=== PATIENT | female | born 1995 | race Caucasian/White ===

== ENCOUNTER → 2019-01-14 01:10 | Observation (INO) ==
[2019-01-14 00:36] LABS: Bilirubin,Urine Negative (Negative); Blood,Urine Negative (Negative); Clarity,Urine Cloudy (Clear); Color,Urine Yellow (Yellow); Glucose,Urine (UA) Normal (Normal); Ketones,Urine Negative (Negative); Leukocyte Esterase,Urine Large (Negative); Nitrite,Urine Negative (Negative); Protein,Urine Negative (Neg-Trace); Specific Gravity,Urine 1.017 (1.010-1.025); Urobilinogen,Urine Normal (Normal)
[2019-01-14 00:38] LABS: Bacteria,Urine Few per hpf (None-Few); Hyaline Casts,Urine None Seen per lpf (None-Few); RBC,Urine 0-3 per hpf (0-3); Squamous Epithelial Cell,Urine Many per lpf (None-Few); WBC,Urine 30-50 per hpf (0-3)
[2019-01-14 00:42] LABS: Amphetamine Screen,Urine Negative ng/mL (Cutoff=1000); Barbiturate Screen,Urine Negative ng/mL (Cutoff=200); Benzodiazepines Screen,Urine Negative ng/mL (Cutoff=200); Cannabinoid Screen,Urine Negative ng/mL (Cutoff = 50); Cocaine Screen,Urine Negative ng/mL (Cutoff= 300); Opiate Screen,Urine Negative ng/mL (Cutoff=300); Phencyclidine Screen,Urine Negative ng/mL (Cutoff=25)
--- NOTE | 2019-01-14 01:26 | OB/GYN Progress Note ---
Date of Encounter: 01/14/19 Time of Encounter: 01:17 - Assessment and Plan (1) 36 weeks gestation of Current Visit: Yes Status: Acute (2) Encounter for suspected PROM, with rupture of membranes not found Current Visit: Yes Status: Acute Speculum exam shows mucous plug and slight bloody discharge. Fern negative, discharged home with labor and when to return to triage precautions. Patient verbalizes understanding Subjective - Subjective Interval history: presents to triage with complaints of leaking of fluid. Patient states she felt a gush earlier this evening, has felt occasional contractions, denies vaginal bleeding. reports good movement Antepartum ROS: loss of fluid, movement normal, contractions, no vaginal bleeding Objective - Vital Signs Vital Signs: Intake and Output 01/13/19 01/13/19 01/14/19 15:59 23:59 07:59 Other: Weight 94.393 kg Patient Weight 01/14/19 23:59 Weight 94.393 kg - Exam FHR: auscultation normal FHR comments: Baseline 135 Abdomen: Present: soft, gravid Cervical dilation: 1/thick/ballotable - Labs Labs: Abnormal lab results Urine Clarity Cloudy (Clear) A 01/14/19 00:20 Ur Leukocyte Esterase Large (Negative) H 01/14/19 00:20 Urine Microscopic WBC 30-50 per hpf (0-3) H 01/14/19 00:20 Ur Squamous Epith Cells Many per lpf (None-Few) H 01/14/19 00:20 Ur Culture Indicated? YES (NO) A 01/14/19 00:20
== END | disposition home or self-care (01) ==
LOC: 1NENULAB
PROVIDERS: ADMIT Advanced Practice Midwife; ATTEND Advanced Practice Midwife

== ENCOUNTER 2019-01-19 14:25 | Observation (INO) | END 2019-01-19 16:11 | disposition home or self-care (01) | LOC: 1NENULAB | PROVIDERS: ADMIT Advanced Practice Midwife; ATTEND Advanced Practice Midwife ==

== ENCOUNTER 2019-01-29 18:32 | Observation (INO) ==
[2019-01-29 19:32] LABS: Amphetamine Screen,Urine Negative ng/mL (Cutoff=1000); Barbiturate Screen,Urine Negative ng/mL (Cutoff=200); Benzodiazepines Screen,Urine Negative ng/mL (Cutoff=200); Cannabinoid Screen,Urine Negative ng/mL (Cutoff = 50); Cocaine Screen,Urine Negative ng/mL (Cutoff= 300); Opiate Screen,Urine Negative ng/mL (Cutoff=300); Phencyclidine Screen,Urine Negative ng/mL (Cutoff=25)
== END 2019-01-29 19:20 | disposition home or self-care (01) ==
LOC: 1NENULAB
PROVIDERS: ADMIT Advanced Practice Midwife; ATTEND Advanced Practice Midwife

== ENCOUNTER 2019-01-31 02:45 | Observation (INO) ==
[2019-01-31 03:15] LABS: Amphetamine Screen,Urine Negative ng/mL (Cutoff=1000); Barbiturate Screen,Urine Negative ng/mL (Cutoff=200); Benzodiazepines Screen,Urine Negative ng/mL (Cutoff=200); Cannabinoid Screen,Urine Negative ng/mL (Cutoff = 50); Cocaine Screen,Urine Negative ng/mL (Cutoff= 300); Opiate Screen,Urine Negative ng/mL (Cutoff=300); Phencyclidine Screen,Urine Negative ng/mL (Cutoff=25)
[2019-01-31 03:25] LABS: Bilirubin,Urine Negative (Negative); Blood,Urine Negative (Negative); Clarity,Urine Cloudy (Clear); Color,Urine Yellow (Yellow); Glucose,Urine (UA) Normal (Normal); Ketones,Urine Negative (Negative); Leukocyte Esterase,Urine Large (Negative); Nitrite,Urine Negative (Negative); PH,Urine 6.5 pH Units (5.0-8.0); Protein,Urine Negative (Neg-Trace); Specific Gravity,Urine 1.014 (1.010-1.025); Urobilinogen,Urine Normal (Normal)
[2019-01-31 03:27] LABS: Bacteria,Urine Few per hpf (None-Few); Hyaline Casts,Urine None Seen per lpf (None-Few); RBC,Urine 0-3 per hpf (0-3); Squamous Epithelial Cell,Urine Many per lpf (None-Few); WBC,Urine 50-100 per hpf (0-3)
[2019-01-31 04:00] LABS: Basophils % 0.3 %; Eosinophils # 0.2 K/mcL (0.0-0.6); Eosinophils % 1.3 %; Immature Granulocytes % 0.8 % (0-4); Lymphocytes % 16.5 %; Mean Corpuscular HGB Conc 33.3 g/dL (31.6-35.5); Mean Corpuscular Hemoglobin 28.8 pg (28.0-33.3); Mean Corpuscular Volume 86.5 fL (83.0-100.0); Monocytes # 0.8 K/mcL (0.0-1.3); Monocytes % 6.5 %; Neutrophils # 8.8 K/mcL (1.6-8.9); Platelet Count 213 K/mcL (140-400); Red Blood Count 4.16 M/mcL (3.82-4.97); Red Cell Distribution Width 14.5 % (11.5-14.5); Segmented Neutrophils % 74.6 %; White Blood Count 11.8 K/mcL (4.3-11.1)
[2019-01-31 04:18] LABS: Alanine Aminotransferase 11 Units/L (7-52); Aspartate Amino Transferase 11 Units/L (13-39); BUN/Creatinine Ratio 16 (6-26); Blood Urea Nitrogen 7 mg/dL (6-20); Lactate Dehydrogenase 140 Units/L (140-271); Uric Acid 4.1 mg/dL (2.3-7.6); eGFR For African Americans > 60 (> 60); eGFR For Non-African Americans > 60 (> 60)
[2019-01-31 05:21] LABS: Creatinine,Urine 44 mg/dL; Protein/Creatinine Ratio,Urine 0.23 mg/mg (0.00-0.20)
== END 2019-01-31 05:40 | disposition home or self-care (01) ==
LOC: 1NENULAB
PROVIDERS: ADMIT Registered Nurse; ATTEND Registered Nurse

== ENCOUNTER 2019-02-04 12:14 | Inpatient (IN) ==
[2019-02-04] MEDS ORDERED: Ondansetron 4 MG/2 ML VIAL IVP PRN (13:05)
[2019-02-04] MEDS ORDERED: Famotidine 20 MG/2 ML VIAL IVP PRN (13:05)
[2019-02-04] MEDS ORDERED: Metoclopramide 10 MG/2 ML VIAL IVP PRN (13:05)
[2019-02-04] MEDS ORDERED: *HR* Nalbuphine 10 MG/ML AMPUL IVP PRN (13:05)
[2019-02-04] MEDS ORDERED: Naloxone 0.4 MG/ML INJ IVP PRN (13:05)
[2019-02-04] MEDS ORDERED: miSOPROStol 25 MCG TABLET PO STA (13:07)
--- NOTE | 2019-02-04 13:10 | OB/GYN History & Physical ---
Date of Encounter: 02/04/19 Time of Encounter: 13:08 Assessment and Plan (1) 39 weeks gestation of Current visit: Yes Status: Acute Patient admitted for scheduled IOL Dr. Couch is the OBGYN paper conservator and is available if needed History of Present Illness Chief complaint: Scheduled IOL HPI: Ms. Contreras is a 23 year old female @ 39w2d presented to labor and delivery for scheduled IOL per Dr. Bustillos. Patient denies LOF, VB or regular contractions. Patient reports good movement. Patient denies any complications with current . Patient has had care with Dr. Bustillos. Blood type: O positive Rubella:Immune Hep B: Nonreactive GBS: Negative Past Med Surg Social Fam HX - Past Medical History Source: patient Medical history: no medical history Psychiatric history: anxiety, depression - Past Surgical History Additional surgical history: wisdom - Social History Smoking Status: Former smoker Smokeless Tobacco Status: No Alcohol use: none Drug use: none Current living situation: Home - Independent Activity Level: Independent ambulation Recent Out of Country Travel Within the Last 8 Weeks: No Exposure or Possible Exposure to Illness During Travel: No - Family History Mother Adopted: No Family Member Ethnicity: Non- Living Status: Still Living Hx Family Cardiac Disorders: No Hx Family Respiratory Disorders: No Hx Family Cancer: No Hx Family GI Disorders: No Hx Family Endocrine Disorder: No Hx Family Neuromuscular Disorders: No Hx Family Neurologic Disorders: No Hx Family HEENT Disorders: No Hx Family Autoimmune Disorders: No Hx Family Psychosocial Disorders: Yes (anxiety) Obstetrical History - Pregnancies : 3 Para: 0 Term: 0 : 0 Ab's: 2 Livin - History/Complications History/Complications: spontaneous MABs in 2013 and 2016 Medications and Allergies One Tablet 1 mg PO DAILY 01/14/19 [History] Allergy/AdvReac Type Severity Reaction Status Date / Time No Known Allergies Allergy Verified 02/04/19 12:52 Review of System OB - Constitutional Constitutional ROS IM: no chills, no fever(s), no headache(s) - Cardiovascular Cardiovascular: no chest pain, no leg edema, no lightheadedness, no syncope - Respiratory Respiratory: no cough - Gastrointestinal Gastrointestinal: no abdominal pain, no diarrhea, no heartburn, no nausea, no vomiting - Genitourinary Genitourinary: no abnormal vaginal bleeding, no dysuria, no flank pain, no urinary frequency, no urinary incontinence, no urinary urgency, no vaginal discharge, no vaginal odor, no vaginal pruritis Exam - Constitutional Constitutional: well developed, well nourished, no acute distress, obese - HEENT HEENT: Normocephaly, Mucus Membranes Moist - Neck Neck exam: full ROM, supple - Lungs Respiratory exam: CTAB - Cardiovascular Cardiovascular exam: RRR, +S1, +S2 - Abdomen Abdomen: Present: bowel sounds normal, gravid, non tender - Extremities Extremities exam: full ROM, normal inspection Deep Tendon Reflex Grade: 2+ Normal - Cervix Dilation: 1 Effacement: 60 Station: -2 - Uterus Uterus exam: Present: normal size, normal contour - Anus/Rectum Anus/Rectum: Present: normal perianal skin - Comments Comments: FHR 145 bpm moderate variability +15x15 accels no decels noted. Irregular contractions. Cat. 1 tracing. Results All other labs normal. - VTE Reasons for not Prescribing Prophylaxis: Treatment not Indicated - Low risk for VTE
[2019-02-04] MEDS ORDERED: Ringers Solution, Lactated 1,000 ML IVC SCH (13:15)
[2019-02-04 13:55] LABS: Amphetamine Screen,Urine Negative ng/mL (Cutoff=1000); Barbiturate Screen,Urine Negative ng/mL (Cutoff=200); Benzodiazepines Screen,Urine Negative ng/mL (Cutoff=200); Cannabinoid Screen,Urine Negative ng/mL (Cutoff = 50); Cocaine Screen,Urine Negative ng/mL (Cutoff= 300); Opiate Screen,Urine Negative ng/mL (Cutoff=300); Phencyclidine Screen,Urine Negative ng/mL (Cutoff=25)
[2019-02-04 13:57] LABS: Basophils % 0.4 %; Eosinophils # 0.1 K/mcL (0.0-0.6); Eosinophils % 1.5 %; Hematocrit 36.9 % (35.3-44.9); Hemoglobin 12.1 g/dL (11.5-15.4); Immature Granulocytes % 0.9 % (0-4); Lymphocytes # 1.4 K/mcL (0.6-4.6); Mean Corpuscular HGB Conc 32.8 g/dL (31.6-35.5); Mean Corpuscular Hemoglobin 28.6 pg (28.0-33.3); Mean Corpuscular Volume 87.2 fL (83.0-100.0); Mean Platelet Volume 10.8 fL (9.4-12.4); Monocytes # 0.8 K/mcL (0.0-1.3); Monocytes % 7.9 %; Neutrophils # 7.1 K/mcL (1.6-8.9); Platelet Count 237 K/mcL (140-400); Red Blood Count 4.23 M/mcL (3.82-4.97); Red Cell Distribution Width 14.4 % (11.5-14.5); Segmented Neutrophils % 74.3 %; White Blood Count 9.6 K/mcL (4.3-11.1)
--- NOTE | 2019-02-04 14:10 | OB Labor Progress Note ---
Date of Encounter: 02/04/19 Time of Encounter: 14:08 Labor Progress Note - Subjective Subjective: Patient doing well. Discussed POC with patient. Patient denies any questions or concerns. - Cervix Cervix: 1.5/70/-3 - Heart Tones Heart Tones: 145 bpm moderate variability +15x15 accels possible decel noted when patient returned from bathroom. FHR back to baseline. - Ferdinand Ferdinand: irregular - Interventions Interventions: SVE, Light catheter placed for IOL with 40cc sterile water in balloon. Patient tolerated well. - Plan Physician notified: Yes Physician notified details: Dr. Couch reviewed tracing. Plan: Continue labor management
[2019-02-04] MEDS: Acetaminophen 325 MG TABLET PO PRN (17:35)
--- NOTE | 2019-02-04 19:31 | OB Labor Progress Note ---
Date of Encounter: 02/04/19 Time of Encounter: 19:29 Labor Progress Note - Subjective Subjective: Patient doing well. Discussed POC with patient. Patient denies any questions or concerns. - Cervix Cervix: 6/80/-1 - Heart Tones Heart Tones: 135 bpm moderate variability +15x15 accels no decels noted. CAt. 1 tracing - [place]: 2-3 min apart - Interventions Interventions: SVE, AROM large amount of clear fluid noted. Pericare provided. - Plan Physician notified: No Plan: Continue labor management anticipate
[2019-02-04] MEDS ORDERED: Oxytocin 20 units/ LR 1000 mL 20 UNIT/1,000 ML BAG IVC SCH (20:15)
[2019-02-04] MEDS: Epidural Premix (fent/bupiv) 110 ML EP SCH (23:01)
--- NOTE | 2019-02-04 23:08 | Anesthesia Evaluation PreOp ---
Date of Encounter: 02/04/19 Time of Encounter: 23:07 - Past History Planned Operation: TANIKA Cardiac History: Denies any Significant Hx Pulmonary History: Denies Any Significant HX NITROGEN OPERATOR History: Denies Any Significant HX Other Medical History: Denies Any Significant HX Anesthesia History: No Prior Anesthetic Complications, Past Anesthesia Alcohol Use: none Drug use: none Medications and Allergies One Tablet 1 mg PO DAILY 01/14/19 [History] Allergy/AdvReac Type Severity Reaction Status Date / Time No Known Allergies Allergy Verified 02/04/19 12:52 - Meds/Allergy Pre-op Review Medications Reviewed: Yes Allergies Reviewed: Yes Beta Blockers on Current Med List: No Anesthesia Results - Labs 02/04/19 13:18 Anesthesia Exam O2 Sat Height 1.55 m Weight 97.4 kg NPO (# of Hours): 4 Pain Scale: 10 Pain Scale Used: Numeric (1 - 10) - HEENT Pupil (Motor): Pupils equal Mallampati: II Teeth: Normal Oral Opening: Greater than 3 - NITROGEN OPERATOR LOC: Oriented NITROGEN OPERATOR Motor: Normal RUE, Normal LUE, Normal RLE, Normal LLE, Normal Face NITROGEN OPERATOR Sensory: Normal: RUE, LUE, RLE, LLE, Face - Cardiac Rhythm: Regular Murmur: None JVD: No Carotid Bruit: No - Pulmonary Breath Sounds: bilateral Clear Respiratory Effort: Symmetrical Anesthesia Assess/Plan ASA Score: 2 Level of consciousness: Cooperative, Oriented Anesthetic Plan: General, Epidural Autologous Blood: Yes Monitoring Plan: Standard Monitors Recovery Plan: PACU
--- NOTE | 2019-02-04 23:11 | Anesthesia Procedures ---
Date of Encounter: 02/04/19 Time of Encounter: 23:09 Procedures: Anesthesia - Epidural/Spinal Patient ID/Chart reviewed: Yes Patient examined: Yes OB Eval: Gestational age: 39.2 OB Eval: : 3 OB Eval: Hx Para: 0 OB Eval: Dilated at (cm): 6 OB Eval: Contractions: Non-stressed pattern Consent Obtained: Yes Supplemental Oxygen: None/Room Air Site Prep: Aseptic Technique, Sterile prep and drape, Povidone-Iodine 1% Patient position: upright Local Anesthetic: Lidocaine 1% Amount of Local Anesthetic used: 3 Touhy Needle Gauge: 18 Touhy Needle Depth (cm): 8 Catheter Depth at Skin (cm): 20 Test Dose (1.5% Lido + Epi): Volume given (mls): 5 Test Dose Result: Negative Loading Dose: Other: 8ml epidural pharm bag premix solution Loading Dose Administered: Thru Catheter Infusion Med: 0.125% Bupivacaine w/ 2 mcg/ml Fentanyl Infusion Rate (mls/hr): 14 ([id number]) Catheter Secured in Place: Tegaderm, Tape Interspace Used: L3-L4 Loss of Resistance (NERIS): Yes Blood: No CSF: No Paresthesia: No Procedure: pt tolerated procedure well. no complications. vss. fhr stable.
[2019-02-05] MEDS: Acetaminophen 325 MG TABLET PO PRN ×2 (00:27→15:35)
[2019-02-05] MEDS: Epidural Premix (fent/bupiv) 110 ML EP SCH ×3 (04:13→16:13)
--- NOTE | 2019-02-05 07:16 | OB Labor Progress Note ---
Date of Encounter: 02/05/19 Time of Encounter: 07:14 Labor Progress Note - Subjective Subjective: Patient reports low back pain. Patient denies any needs at this time - Cervix Cervix: 9.5/100/0 - Heart Tones Heart Tones: 135 bpm moderate variability +15x15 accels no early decels noted. - [place]: 2-3 min apart - Interventions Interventions: SVE, repositioned - Plan Physician notified: No Plan: Continue labor management. anticipate
[2019-02-05] MEDS ORDERED: Ropivacaine/PF 0.2% 20 ML VIAL ONE (08:21)
--- NOTE | 2019-02-05 11:11 | OB Labor Progress Note ---
Date of Encounter: 02/05/19 Time of Encounter: 11:09 Labor Progress Note - Subjective Subjective: Patient resting comfortably with epidural in place. - Vital Signs Vital Signs: WNL - Cervix Cervix: 9/100/0 - Heart Tones Heart Tones: FHR 140 bpm, moderate variability, +15x15 accels, occasional early/variable decels. - [place]: 2-4 minutes - Interventions Interventions: SVE - Plan Plan: Continue expectant management Reposition on peanut ball Consider initiating Pitocin to increase intensity of contractions.
[2019-02-05] MEDS ORDERED: Lidocaine -MPF 1% 5 ML AMPUL ONE (18:16)
--- NOTE | 2019-02-05 19:21 | OB/GYN Procedure Note ---
Delivery - Delivery Date: 02/05/19 Provider: Yue Sparks Intrapartum events: prolonged labor- > = 20hr Delivery induction: AROM, oxytocin, chavira, misoprostol Delivery monitor: external FHT, external uterine, internal FHT Anesthesia: local, epidural Quantitated Blood Loss: 400 - (s) A Infant Delivery Date: 02/05/19 Delivery Time: 17:55 Presentation: vertex Position: LIANA Route of delivery: Gender: Male Viability: Viable Pounds: 8 Ounces: 8 Weight Gram: 3.88 kg at 1 minute: 7 at 5 mins: 9 Shoulder Dystocia: not encountered Shoulder Dystocia Maneuvers: Artemio maneuver Specimens collected: cord blood Placenta: spontaneous Cord: 3 umbilical vessels - Repair Episiotomy: none Laceration Description: Perineal - 2nd Degree, Superficial (clitoral laceration) - Complications Delivery complications: none Delivery comments: Called to room for delivery. Under maternal effort, spontaneous delivery of viable male over second-degree perineal laceration. Infant placed on maternal abdomen for drying and stimulation. Cord clamped and cut after pulsation ceased. Upon inspection of perineum and vagina, the dorsal clitoral artery was noted to be bleeding severely. Pressure applied and Dr. Jason requested to room for repair of this area. Second degree vaginal laceration noted and repaired by this CNM with 3-0 Vicryl in the usual fashion. Spontaneous delivery of intact placenta, EBL 400 mL's. No nuchal cord, shoulder dystocia, or meconium encountered. Mother and in kangaroo care for 2 hour recovery. - Disposition Mom disposition: stable in LDR Ramona disposition: stable in LDR
[2019-02-05] MEDS ORDERED: Ibuprofen 600 MG TABLET PO ONE (19:55)
[2019-02-05] MEDS ORDERED: Lanolin 7 G OINT...G. TP PRN (20:58)
[2019-02-05] MEDS ORDERED: Benzocaine/Menthol 56 GM AEROSOL SPRAY TP PRN (20:58)
[2019-02-05] MEDS ORDERED: *HR* HYDROcodone/Acet 5/325 mg TABLET PO PRN (20:58)
[2019-02-05] MEDS ORDERED: Oxytocin 20 units/ LR 1000 mL 20 UNIT/1,000 ML BAG IVC SCH (20:58)
[2019-02-06] MEDS: Ibuprofen 600 MG TABLET PO PRN ×3 (02:03→09:19)
[2019-02-06 08:14] VITALS: BP 105/70
[2019-02-06] MEDS ORDERED: Prenatal Vit/FA 1 EACH TABLET PO SCH (09:00)
--- NOTE | 2019-02-06 09:09 | Discharge Summary ---
Date of Encounter: 02/06/19 Time of Encounter: 09:06 - Discharge Diagnosis (1) Vaginal delivery Priority: Primary Status: Acute Comments: S/P Vaginal Delivery Day 1. Pain is well controlled Lochia is light and without clots Tolerating regular diet, passing flatus Voiding without difficulty Breast feeding Discharge home today POC per consult with Dr Michael - Discharge Medications Prescriptions: New Breast Pump [BREAST PUMP] 1 each .ROUTE AD #1 each Docusate [Colace] 100 mg PO BID #30 capsule Benzocaine/Menthol [place] [Dermoplast [place]] 1 appl TP QID PRN aerosol PRN Reason: See Comments Lanolin [Lansinoh] 1 appl TP TID PRN oint...g. PRN Reason: Sore Nipples Ibuprofen [Motrin] 600 mg PO Q6HR PRN #30 tablet PRN Reason: Cramping Acetaminophen [Tylenol] 650 mg PO Q6H PRN tablet PRN Reason: Mild Pain Continued One Tablet 1 mg PO DAILY Home Medications: One Tablet 1 mg PO DAILY 01/14/19 [History] Acetaminophen [Tylenol] 650 mg PO Q6H PRN tablet 02/06/19 [Rx] Benzocaine/Menthol [place] [Dermoplast [place]] 1 appl TP QID PRN aerosol 02/06/19 [Rx] Breast Pump [BREAST PUMP] 1 each .ROUTE AD #1 each 02/06/19 [Rx] Docusate [Colace] 100 mg PO BID #30 capsule 02/06/19 [Rx] Ibuprofen [Motrin] 600 mg PO Q6HR PRN #30 tablet 02/06/19 [Rx] Lanolin [Lansinoh] 1 appl TP TID PRN oint...g. 02/06/19 [Rx] Allergies/Adverse Reactions: Allergy/AdvReac Type Severity Reaction Status Date / Time No Known Allergies Allergy Verified 02/04/19 12:52 Data Procedures and tests throughout hospitalization: Laboratory Tests 02/04/19 02/04/19 13:18 13:18 WBC 9.6 RBC 4.23 Hgb 12.1 Hct 36.9 MCV 87.2 MCH 28.6 MCHC 32.8 RDW 14.4 Plt Count 237 MPV 10.8 Immature Gran % 0.9 Seg Neutrophils % 74.3 Lymphocytes % 15.0 Monocytes % 7.9 Eosinophils % 1.5 Basophils % 0.4 Neutrophils # 7.1 Lymphocytes # 1.4 Monocytes # 0.8 Eosinophils # 0.1 Basophils # 0.0 Urine Opiates Screen Negative Ur Buprenorphine Scrn Negative Ur Barbiturates Screen Negative Ur Phencyclidine Scrn Negative Ur Amphetamines Screen Negative U Benzodiazepines Scrn Negative Urine Cocaine Screen Negative U Marijuana (THC) Screen Negative Ur Drug Screen Interp See Below Date of admission: 02/04/19 12:14 Consults: 02/05/19 20:58 Consult to Non Emergency Services Ambulance Driver [CONS] Routine Comment: Vaginal delivery, consult needed Discharging clinician: Karissa Kam Anticipated date of discharge: 02/06/19 - Patient Status Disposition: Home, Self-Care Condition: Good Functional capacity at discharge: independent ambulation Overall status at discharge: patient is progressing back to baseline - Discharge Instructions Follow Up With: Yue Sparks CNM [Advanced Practice Nurse] - - Diet and Activity Activity: increase activity as tolerated Diet: regular diet Hospital Course Reason for admission: induction of labor, IUP at term Delivery: Episiotomy: none Laceration: other Other procedures: none complications: none Discharge diagnosis: IUP at term delivered [place] baby: male Time Attestation: Total time spent providing and/or coordinating discharge services: Time Spent: Less than 30 minutes Exam - Constitutional Vitals: Temp Pulse Resp BP Pulse Ox 97.7 F 100 16 105/70 97 02/06/19 08:13 02/06/19 08:13 02/06/19 08:13 02/06/19 08:13 02/06/19 05:45 General appearance IM: cooperative, A&O X 3, pleasant - Respiratory Respiratory exam: Present: CTAB - Cardiovascular Cardiovascular exam IM: Present: RRR, +S1, +S2 - GI/Abdominal GI/Abdominal exam IM: normal bowel sounds, soft - Rectal Rectal exam: deferred - Uterine Tone: Firm Uterus Position: 2 Fingers Below Umbilicus, Midline - Extremities Exam Extremities exam IM: Present: normal capillary refill, normal inspection, radial pulses palpable and symmetrical - Neurological Exam Neurological exam: alert, oriented X3, reflexes normal
[2019-02-06] MEDS: Acetaminophen 325 MG TABLET PO PRN ×2 (12:29→19:06)
== END 2019-02-06 21:47 | disposition home or self-care (01) | DRG 560 ==
LOC: 1NENULAB 12:14 → 1NENUOBS 02-05 21:08
PROVIDERS: ADMIT Obstetrics & Gynecology; ATTEND Obstetrics & Gynecology